=== PATIENT | female | born 1990 | race Hispanic/Latino ===

== ENCOUNTER 2017-04-25 11:57 | Outpatient (CLI) | payer MEDICAID ==
--- NOTE | 2017-04-25 15:42 | ULT ---
COMPLETE OB ULTRASOUND GREATER THAN 14 WEEKS 04/25/17 HISTORY: 27-year-old female to evaluate for anatomy. A single viable intrauterine fetus is noted in cephalic presentation. The placenta is fundal and post erior. heart rate 141 beats per minute. Cervical length 4.6 cm. Amniotic fluid is within normal limits. MEERA of 14.9 cm. ANATOMY: Posterior fossa in the brain was somewhat less than optimally imaged, otherwise brain, four julieth mber heart, three vessel cord, stomach, bladder, kidneys, spine, and extremities are unremarkable. BIOMETRY: BPD 8.7 cm - - 35 weeks, 0 days Head circumference 32.1 cm - - 36 weeks, 1 day Abdominal circumference 30.2 cm - - 34 weeks, 1 day Femur length 6.8 cm - - 34 weeks, 6 days IMPRESSION: 1. Gestational age by ultrasound 35 weeks, 1 day. EDC by ultrasound 05/29/17. 2. Gestational age by LMP 33 weeks, 5 days. EDC by LMP 06/08/17. 3. Estimated weight 2480 grams. 4. Single viable intrauterine fetus in cephalic presentation. POS: [facility]
== END 2017-04-25 11:58 | disposition home or self-care (01) ==
LOC: ULT 11:57
PROVIDERS: ATTEND Family Medicine
DX: Z34.03 Encounter for supervision of normal first pregnancy, third trimester (principal)
CPT/HCPCS: 76805

== ENCOUNTER 2021-02-15 13:46 | Outpatient (CLI) | payer OTHER | END 2021-02-15 13:47 | disposition home or self-care (01) | LOC: BICULT 13:46 | PROVIDERS: ATTEND Family Medicine | DX: O09.892 Supervision of other high risk pregnancies, second trimester (principal); Z3A.23 23 weeks gestation of pregnancy | CPT/HCPCS: 76805 ==